=== PATIENT | female | born 1975 | race Caucasian/White ===

== ENCOUNTER 2016-10-21 10:42 | Emergency (ER) | payer BC ==
[~2016-10-21] VITALS: Ht 165.1 cm; Wt 59.9 kg
[2016-10-21 10:42] VITALS: BP 110/48; PULSE 75; RESP 18; TEMP 97.5; O2SAT 100
--- NOTE | 2016-10-21 10:42 | NUR ---
Patient to ER bed 3 to gown for evaluation. Side rails up. Report given to Sagar SAUCEDA
--- NOTE | 2016-10-21 10:43 | NUR ---
ER at bedside examining patient.
--- NOTE | 2016-10-21 10:50 | NUR ---
Pt brought in by self for chief complaint of abdominal pain / and nausea.Patient is alert and oriented x 4,cooperative, able to make her needs known, verbalizes constipation since AM, last BM 10/20/16 in the PM.She states radiating pain from right lateral lower back and feeling "full and I need to do number 2.I tried for 30 minutes, then the pain started."No other complaints, injury per patient, none noted.
--- NOTE | 2016-10-21 11:30 | NUR ---
Pt off unit for ab x-ray.
--- NOTE | 2016-10-21 12:05 | NUR ---
DR LEWIS AT BEDSIDE SPEAKING WITH PT ABOUT TEST RESULTS
[2016-10-21] MEDS ORDERED: NA PHOS,M-B/NA PHOS,DI-BA 118 ML (FLEET ENEMA) RC ONE (12:15)
--- NOTE | 2016-10-21 12:19 | NUR ---
PT GIVEN FLEETS ENEMA AND HAD VERY LARGE BOWEL MOVEMENT. PT STATES RELIEF
[2016-10-21] MEDS ORDERED: LORazepam 2 MG/ML VIAL (FOR ER USE) IM ONE (13:15)
[2016-10-21 13:30] VITALS: BP 117/69; PULSE 76; RESP 18; TEMP 98.2; O2SAT 100
--- NOTE | 2016-10-21 13:30 | NUR ---
Patient given written and verbal discharge instructions and verbalizes understanding. ER MD discussed with patient the results and treatment provided. Given copies of tests performed in ER. Patient in stable condition. ID arm band removed. IV catheter removed intact and dressing applied, no active bleeding. Patient educated on pain management and to follow up with PMD. Pain Scale 0/10 Opportunity for questions provided and answered.
== END 2016-10-21 13:30 | disposition home or self-care (01) ==
LOC: SED 10:42
DX: K56.41 Fecal impaction (principal)
CPT/HCPCS: 74020-TC; 99284